=== PATIENT | female | born 2000 | race Two or more races ===

== ENCOUNTER 2021-02-12 12:03 | Emergency (ER) | payer OTHER ==
[~2021-02-12] VITALS: Ht 154.9 cm; Wt 59.9 kg
[2021-02-12] MEDS ORDERED: ZOFRAN8 MG (12:33)
== END 2021-02-12 18:41 | disposition home or self-care (01) ==
LOC: ER 12:03
DX: O21.0 Mild hyperemesis gravidarum (principal)

== ENCOUNTER 2021-07-28 22:45 | Outpatient (CLI) | payer OTHER ==
[~2021-07-28 22:45] MED LIST: ZOFRAN8 MG
[2021-07-28] MEDS ORDERED: PRENATAL TABLE1 EAC1 PO (22:58)
== END 2021-07-29 15:33 | disposition home or self-care (01) ==
LOC: OBS/DEL 22:45
PROVIDERS: ATTEND Obstetrics & Gynecology
DX: O60.03 Preterm labor without delivery, third trimester (principal); O98.813 Other maternal infectious and parasitic diseases complicating pregnancy, third trimester; Z3A.33 33 weeks gestation of pregnancy

== ENCOUNTER 2021-08-29 11:55 | Outpatient (CLI) | payer OTHER ==
[~2021-08-29 11:55] MED LIST changes: +PRENATAL TABLE1 EAC1 PO
== END 2021-08-29 13:56 | disposition left against medical advice (07) ==
LOC: OBS/DEL 11:55
PROVIDERS: ATTEND Obstetrics & Gynecology
DX: O98.513 Other viral diseases complicating pregnancy, third trimester (principal); U07.1 COVID-19; Z3A.37 37 weeks gestation of pregnancy

== ENCOUNTER 2021-09-09 15:00 | Inpatient (IN) | payer OTHER ==
[~2021-09-09] VITALS: Ht 154.9 cm; Wt 2.7 kg
[2021-09-12] MEDS ORDERED: AMPICILLIN TRI500 MG PO (05:56)
== END 2021-09-16 13:00 | disposition home or self-care (01) | DRG 788 ==
LOC: O/R 09-12 05:19 → LDR 09-12 05:19 → O/R 09-13 13:52 → OB/GYN 09-13 15:46
PROVIDERS: ADMIT Obstetrics & Gynecology; ATTEND Obstetrics & Gynecology
PROC: 10D00Z1 Extraction of Products of Conception, Low, Open Approach (ICD-10-PCS; principal; 2021-09-12)
PROC: 4A1HXCZ Monitoring of Products of Conception, Cardiac Rate, External Approach (ICD-10-PCS; 2021-09-12)
DX: O62.1 Secondary uterine inertia (principal); Z3A.39 39 weeks gestation of pregnancy; Z37.0 Single live birth; Z20.822 Contact with and (suspected) exposure to COVID-19

== ENCOUNTER 2023-08-27 12:00 | Emergency (ER) | payer OTHER ==
[~2023-08-27] VITALS: Ht 154.9 cm; Wt 67.1 kg
[~2023-08-27 12:00] MED LIST changes: +AMPICILLIN TRI500 MG PO
[2023-08-27 16:37] LABS: URINE APPEARANCE Cloudy; URINE BILIRRUBIN Negative (NEGATIVE); URINE BLOOD NHT; URINE COLOR Yellow; URINE GLUCOSE Negative (NEGATIVE); URINE LEUKOCYTE Moderate; URINE NITRATE Negative; URINE PROTEIN 30 (NEGATIVE)
[2023-08-27 16:38] LABS: URINE BACTERIA 5410.4 uL (0.0-1933); URINE EPITHELIAL CELLS 135.2 uL (0.0-38.8); URINE RBC 30.8 uL (0.0-20.8); URINE WBC 409.3 uL (0.0-23.2)
[2023-08-27] MEDS ORDERED: AZITHROMYCIN 500 MG TABLET PO ONE (17:30)
[2023-08-27] MEDS ORDERED: CEFTRIAXONE SODIUM 1,000 MG VIAL IM ONE (17:30)
== END 2023-08-27 20:28 | disposition home or self-care (01) ==
LOC: ER 12:00
PROVIDERS: General Practice
DX: N39.0 Urinary tract infection, site not specified (principal); Z88.2 Allergy status to sulfonamides

== ENCOUNTER 2025-03-28 12:26 | Inpatient (IN) | payer OTHER ==
[~2025-03-28] VITALS: Ht 162.6 cm; Wt 63.5 kg
[2025-03-28] MEDS ORDERED: ZOFRAN8 MG PO (12:41)
[2025-03-28 13:25] LABS: BASO % 0.5 % (0.1-1.2); EOS # 0.17 (0.04-0.54); EOS % 1.9 % (0.7-7.0); LYMPH # 2.25 (1.18-3.74); LYMPH % 24.6 % (19.3-53.1); MEAN PLATELET VOLUME 10.90 fl (9.4-12.4); MONO # 0.55 (0.24-0.82); MONO % 6.0 % (4.7-12.5); NEUT # 6.12 (1.56-6.13); NEUT % 66.8 % (34.0-71.1); RED CELL DISTRIBUTION WIDTH 12.9 % (11.6-14.4)
[2025-03-28 13:30] LABS: ERYTHROCYTE SEDIMENTATION RATE 46 mm/hr (0-20)
[2025-03-28 13:33] LABS: URINE APPEARANCE Cloudy; URINE BILIRRUBIN Negative (NEGATIVE); URINE BLOOD Negative; URINE COLOR Yellow; URINE GLUCOSE Negative (NEGATIVE); URINE KETONE Trace (NEGATIVE); URINE LEUKOCYTE Small; URINE NITRATE Negative; URINE PROTEIN Negative (NEGATIVE); URINE UROBILINOGEN 1.0 E.U./dl
[2025-03-28 13:37] LABS: URINE BACTERIA 2949.4 uL (0.0-1933); URINE EPITHELIAL CELLS 112.8 uL (0.0-38.8); URINE RBC 7.9 uL (0.0-20.8); URINE WBC 35.6 uL (0.0-23.2)
[2025-03-28 13:42] LABS: INR 1.03
[2025-03-28 13:48] LABS: ALT/SGPT 21.0 U/L (12-78); AST/SGOT 9.0 U/L (15-37); BILIRUBIN TOTAL 0.34 mg/dL (0.3-1.2); BUN CREA RATIO 17.0 (7.0-25.0); CREATININE SERUM 0.48 mg/dL (0.55-1.02); GFR 156.33; GLOBULINA 4.1 G/DL (2.4-3.5); GLUCOSE FASTING 98.0 mg/dL (65-100); OSMOLALITY SERUM 274.0 MOSM/KG (275-295)
[2025-03-28 13:52] LABS: URINE CAST 0.14 uL (0.0-1.40)
[2025-03-28] MEDS ORDERED: 0.9 % SODIUM CHLORIDE 500 ML IV SCH (15:15)
[2025-03-28] MEDS ORDERED: LACTOBACILLUS ACIDOPHILUS 1 CAP CAP PO ONE (16:05)
[2025-03-28] MEDS ORDERED: CEFAZOLIN SODIUM 1,000 MG VIAL ONE ×2 (16:05→23:17)
[2025-03-28] MEDS ORDERED: ONDANSETRON HCL 2 MG/ML VIAL ONE (16:05)
[2025-03-28] MEDS ORDERED: ONDANSETRON HCL 4 MG in DEXTROSE 5 % IN WATER 50 ML IV SCH (17:00)
[2025-03-28] MEDS ORDERED: CEFAZOLIN SODIUM 2,000 MG in 0.9 % SODIUM CHLORIDE 100 ML IV SCH (17:00)
[2025-03-28] MEDS ORDERED: LACTOBACILLUS ACIDOPHILUS 1 CAP CAP PO SCH (17:00)
[2025-03-28 19:04] VITALS: BP 109/69
[2025-03-28] MEDS ORDERED: FAMOtidine 40 MG in 0.9 % SODIUM CHLORIDE 8 ML IV PUSH SCH (21:00)
[2025-03-28] MEDS ORDERED: FAMOTIDINE/PF 20 MG in 0.9 % SODIUM CHLORIDE 8 ML IV PUSH SCH (21:00)
[2025-03-29 00:15] VITALS: BP 109/68
[2025-03-29 08:00] VITALS: BP 116/76
[2025-03-29] MEDS ORDERED: ACETAMINOPHEN 500 MG GEL..CAP PO PRN (16:45)
[2025-03-29 16:52] VITALS: BP 103/67
[2025-03-30 00:16] VITALS: BP 101/65; O2SAT 98
[2025-03-30 08:00] VITALS: BP 106/86
[2025-03-30 15:51] VITALS: BP 111/72
[2025-03-31 00:22] VITALS: BP 95/59
[2025-03-31 08:18] VITALS: BP 111/73
[2025-03-31 14:14] LABS: ALT/SGPT 20.0 U/L (12-78); AST/SGOT 8.0 U/L (15-37); BILIRUBIN TOTAL 0.26 mg/dL (0.3-1.2); BUN CREA RATIO 13.0 (7.0-25.0); CREATININE SERUM 0.45 mg/dL (0.55-1.02); GFR 168.42; GLOBULINA 3.6 G/DL (2.4-3.5); GLUCOSE FASTING 93.0 mg/dL (65-100); OSMOLALITY SERUM 273.0 MOSM/KG (275-295)
[2025-03-31 14:21] LABS: URINE APPEARANCE Clear; URINE BILIRRUBIN Negative (NEGATIVE); URINE BLOOD Negative; URINE COLOR Yellow; URINE GLUCOSE Negative (NEGATIVE); URINE KETONE Negative (NEGATIVE); URINE LEUKOCYTE Negative; URINE NITRATE Negative; URINE PROTEIN Negative (NEGATIVE); URINE UROBILINOGEN 1.0 E.U./dl
[2025-03-31 14:26] LABS: URINE BACTERIA 1.2 uL (0.0-1933); URINE CAST 0.00 uL (0.0-1.40); URINE EPITHELIAL CELLS 0.9 uL (0.0-38.8); URINE RBC 0.2 uL (0.0-20.8); URINE WBC 1.0 uL (0.0-23.2)
[2025-03-31 16:22] VITALS: BP 115/72
[2025-04-01 02:07] VITALS: BP 100/60
[2025-04-01 07:53] VITALS: BP 114/74
[2025-04-01 16:00] VITALS: BP 104/68
[2025-04-02 02:07] VITALS: BP 100/61
[2025-04-02 08:00] VITALS: BP 105/67
[2025-04-02 17:36] VITALS: BP 103/57
[2025-04-03 01:23] VITALS: BP 108/66
[2025-04-03 08:00] VITALS: BP 109/71
== END 2025-04-03 13:31 | disposition home or self-care (01) | DRG 833 ==
LOC: ER 12:26 → OB/GYN 15:10
PROVIDERS: Internal Medicine Infectious Disease; Obstetrics & Gynecology; ADMIT Obstetrics & Gynecology; ATTEND Obstetrics & Gynecology
PROC: BU4CZZZ Ultrasonography of Uterus and Ovaries (ICD-10-PCS; principal; 2025-03-28)
PROC: 4A1HXCZ Monitoring of Products of Conception, Cardiac Rate, External Approach (ICD-10-PCS; 2025-03-28)
PROC: BY49ZZZ Ultrasonography of First Trimester, Single Fetus (ICD-10-PCS; 2025-04-01)
PROC: BU4CZZZ Ultrasonography of Uterus and Ovaries (ICD-10-PCS; 2025-04-01)
DX: O23.31 Infections of other parts of urinary tract in pregnancy, first trimester (principal); O34.219 Maternal care for unspecified type scar from previous cesarean delivery; O36.80X0 Pregnancy with inconclusive fetal viability, not applicable or unspecified; Z36.82 Encounter for antenatal screening for nuchal translucency; Z14.8 Genetic carrier of other disease; O26.891 Other specified pregnancy related conditions, first trimester; R10.20 Pelvic and perineal pain unspecified side; O21.0 Mild hyperemesis gravidarum; Z3A.13 13 weeks gestation of pregnancy

== ENCOUNTER 2025-05-22 15:09 | Outpatient (CLI) | payer OTHER ==
[~2025-05-22 15:09] MED LIST changes: +ZOFRAN8 MG PO
== END 2025-05-22 15:12 | disposition home or self-care (01) ==
LOC: PRENATAL 15:09
PROVIDERS: ATTEND Obstetrics & Gynecology Maternal & Fetal Medicine
DX: O44.02 Complete placenta previa NOS or without hemorrhage, second trimester (principal); O34.219 Maternal care for unspecified type scar from previous cesarean delivery; Z3A.21 21 weeks gestation of pregnancy